=== PATIENT | male | born 1985 | race Caucasian/White ===

== ENCOUNTER 2019-11-23 09:34 | Emergency (ER) | payer MEDICAID ==
[2019-11-23 10:04] VITALS: BP 129/77
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
== END 2019-11-23 14:20 | disposition home or self-care (01) ==
LOC: ER 09:34
DX: S09.90XA Unspecified injury of head, initial encounter (principal); W22.09XA Striking against other stationary object, initial encounter; Y92.89 Other specified places as the place of occurrence of the external cause
CPT/HCPCS: 99283